=== PATIENT | female | born 1940 | race Caucasian/White ===

== ENCOUNTER 2016-06-24 08:06 | Emergency (ER) | payer MEDICARE ==
[~2016-06-24 08:06] MED LIST: AUGMENTIN 875-1 EACH PO; CHILDRENS CHEWA81 MG PO; CORDARONE200 MG PO; FLUOXETINE HCL20 MG PO; HYDROCODON-ACE1 EAC2 PO; LISINOPRIL20 MG PO; LYRICA50 MG PO; NEXIUM40 MG PO; PAIN RELIEF650 MG PO; PRAVACHOL40 MG PO; XARELTO20 MG PO
[2016-06-24 08:43] LABS: BASO % 0.1 % (0.1-1.2); EOS # 0.2 10_X3_uL (0.0-0.4); EOS % 1.3 % (0.7-5.8); GRAN # 13.5 10_X3_uL (1.6-6.1); GRAN % 87.9 % (34.0-71.1); HEMATOCRIT 41.7 % (34-45); HEMOGLOBIN 13.7 g/dL (11.2-15.7); LYMPH # 0.7 10_X3_uL (1.2-3.7); LYMPH % 4.4 % (19.3-51.7); MEAN CORPUSCULAR HEMOGLOBIN 30.2 pg (27.0-33.0); MEAN CORPUSCULAR HGB CONC 32.9 g/dL (32.0-36.0); MEAN CORPUSCULAR VOLUME 92.1 fL (79-95); MEAN PLATELET VOLUME 9.3 fl (7.5-11.5); MONO % 6.3 % (4.7-12.5); PLATELET COUNT 260 x10_3/uL (182-369); RED BLOOD COUNT 4.53 x10_6/uL (3.9-5.2); RED CELL DISTRIBUTION WIDTH 14.3 % (11.7-14.4); WHITE BLOOD COUNT 15.3 x10_3/uL (4.0-10.0)
[2016-06-24 08:55] LABS: ALBUMIN 3.7 gm/dL (3.4-5.0); BILIRUBIN,TOTAL 0.41 mg/dL (0.0-1.0); CALCIUM 8.7 mg/dL (8.7-10.7); POTASSIUM 4.3 mmol/L (3.5-5.1); TOTAL PROTEIN 7.8 gm/dL (6.4-8.2)
[2016-06-24 10:21] LABS: URINE BILIRUBIN NEGATIVE (NEGATIVE); URINE BLOOD TRACE (NEGATIVE); URINE GLUCOSE (UA) NORMAL (NORMAL); URINE KETONE NEGATIVE (NEGATIVE); URINE LEUKOCYTE ESTERASE TRACE (NEGATIVE); URINE NITRATE NEGATIVE (NEGATIVE); URINE PROTEIN 1+ (NEGATIVE); UROBILINOGEN NORMAL mg/dL (<1.0)
[2016-06-24 10:44] LABS: URINE AMORPHOUS SEDIMENT 1+; URINE BACTERIA TRACE (NONE SEEN); URINE RBC 0-5 /[HPF] (0-2); URINE SQUAMOUS EPITHELIAL CELL 0-10 /[HPF] (NONE SEEN); URINE WBC 0-5 /[HPF] (0-5); URINE YEAST 1+ (NONE SEEN)
== END 2016-06-24 14:17 | disposition home or self-care (01) ==
LOC: ER 08:06
PROVIDERS: General Practice
DX: R11.2 Nausea with vomiting, unspecified (principal); R19.7 Diarrhea, unspecified; A04.9 Bacterial intestinal infection, unspecified; I48.91 Unspecified atrial fibrillation; E78.5 Hyperlipidemia, unspecified; I10 Essential (primary) hypertension; F41.9 Anxiety disorder, unspecified; K21.9 Gastro-esophageal reflux disease without esophagitis; G89.29 Other chronic pain; M54.9 Dorsalgia, unspecified; Z88.5 Allergy status to narcotic agent; Z79.899 Other long term (current) drug therapy
CPT/HCPCS: 36415; 80053; 81001; 82150; 83690; 85025; 96361; 96365; 96375; 99070; 99284-25; J7040